=== PATIENT | female | born 1995 | race American Indian/Alaskan Native ===

== ENCOUNTER 2019-05-05 15:23 | Emergency (ER) | payer SELFPAY ==
[2019-05-05 19:50] LABS: Basophils # (Auto) 0.1 K/mm3 (0.0-0.1); Eosinophils # (Auto) 0.1 K/mm3 (0.0-0.4); Eosinophils % (Auto) 1.8 % (0.0-4.3); Hematocrit 35.5 % (30.3-42.9); Hemoglobin 12.2 gm/dl (10.1-14.3); Lymphocytes # (Auto) 2.4 K/mm3 (1.2-5.4); Lymphocytes % (Auto) 42.3 % (13.4-35.0); Mean Corpuscular HGB Conc 34 % (30-34); Mean Corpuscular Volume 93 fl (79-97); Monocytes # (Auto) 0.4 K/mm3 (0.0-0.8); Monocytes % (Auto) 6.6 % (0.0-7.3); Red Blood Count 3.82 M/mm3 (3.65-5.03)
--- NOTE | 2019-05-05 20:01 | Emergency Department Report ---
<HAZEL GROSS - Last Filed: 05/05/19 22:40> ED Psych HPI - General Chief Complaint: Psych Stated Complaint: MH Time Seen by Provider: 05/05/19 16:15 - Related Data Home Medications Medication Instructions Recorded Confirmed Last Taken Unobtainable 05/06/19 05/06/19 Unknown Allergies Allergy/AdvReac Type Severity Reaction Status Date / Time Unable to Assess Allergy Unverified 05/05/19 16:03 ED Past Medical Hx - Medications Home Medications: Home Medications Medication Instructions Recorded Confirmed Last Taken Type Unobtainable 05/06/19 05/06/19 Unknown History ED Course - Reevaluation(s) Reevaluation #1: 05/05/19 22:42 CT scan of the brain negative for acute disease. Screening laboratory studies unremarkable. Patient appears medically suitable for psychiatric placement at this time. ED Medical Decision Making - Lab Data Result diagrams: 05/05/19 19:33 05/05/19 19:33 Vital Signs 05/05/19 05/05/19 16:43 20:00 Temperature 98.5 F 98.0 F Pulse Rate 71 95 H Respiratory 20 18 Rate Blood Pressure 136/91 129/81 [Left] O2 Sat by Pulse 99 99 Oximetry Lab Results 05/05/19 05/05/19 05/05/19 Range/Units 19:33 19:33 19:33 WBC 5.7 (4.5-11.0) K/mm3 RBC 3.82 (3.65-5.03) M/mm3 Hgb 12.2 (10.1-14.3) gm/dl Hct 35.5 (30.3-42.9) % MCV 93 (79-97) fl MCH 32 (28-32) pg MCHC 34 (30-34) % RDW 14.0 (13.2-15.2) % Plt Count 147 (140-440) K/mm3 Lymph % (Auto) 42.3 H (13.4-35.0) % Weston % (Auto) 6.6 (0.0-7.3) % Eos % (Auto) 1.8 (0.0-4.3) % Baso % (Auto) 1.0 (0.0-1.8) % Lymph # 2.4 (1.2-5.4) K/mm3 Weston # 0.4 (0.0-0.8) K/mm3 Eos # 0.1 (0.0-0.4) K/mm3 Baso # 0.1 (0.0-0.1) K/mm3 Seg Neutrophils % 48.3 (40.0-70.0) % Seg Neutrophils # 2.8 (1.8-7.7) K/mm3 Sodium 138 (137-145) mmol/L Potassium 5.3 H (3.6-5.0) mmol/L Chloride 104.6 (98-107) mmol/L Carbon Dioxide 23 (22-30) mmol/L Anion Gap 16 mmol/L BUN 7 (7-17) mg/dL Creatinine 0.8 (0.7-1.2) mg/dL Estimated GFR > 60 ml/min BUN/Creatinine Ratio 9 % Glucose 82 (65-100) mg/dL Calcium 9.5 (8.4-10.2) mg/dL Total Bilirubin 0.50 (0.1-1.2) mg/dL AST 31 (5-40) units/L ALT 16 (7-56) units/L Alkaline Phosphatase 45 (35-129) units/L Total Protein 7.4 (6.3-8.2) g/dL Albumin 4.2 (3.9-5) g/dL Albumin/Globulin Ratio 1.3 % HCG, Qual (Negative) Salicylates < 0.3 L (2.8-20.0) mg/dL Acetaminophen (10.0-30.0) ug/mL Plasma/Serum Alcohol (0-0.07) % 05/05/19 05/05/19 05/05/19 Range/Units 19:33 19:33 19:33 WBC (4.5-11.0) K/mm3 RBC (3.65-5.03) M/mm3 Hgb (10.1-14.3) gm/dl Hct (30.3-42.9) % MCV (79-97) fl MCH (28-32) pg MCHC (30-34) % RDW (13.2-15.2) % Plt Count (140-440) K/mm3 Lymph % (Auto) (13.4-35.0) % Weston % (Auto) (0.0-7.3) % Eos % (Auto) (0.0-4.3) % Baso % (Auto) (0.0-1.8) % Lymph # (1.2-5.4) K/mm3 Weston # (0.0-0.8) K/mm3 Eos # (0.0-0.4) K/mm3 Baso # (0.0-0.1) K/mm3 Seg Neutrophils % (40.0-70.0) % Seg Neutrophils # (1.8-7.7) K/mm3 Sodium (137-145) mmol/L Potassium (3.6-5.0) mmol/L Chloride (98-107) mmol/L Carbon Dioxide (22-30) mmol/L Anion Gap mmol/L BUN (7-17) mg/dL Creatinine (0.7-1.2) mg/dL Estimated GFR ml/min BUN/Creatinine Ratio % Glucose (65-100) mg/dL Calcium (8.4-10.2) mg/dL Total Bilirubin (0.1-1.2) mg/dL AST (5-40) units/L ALT (7-56) units/L Alkaline Phosphatase (35-129) units/L Total Protein (6.3-8.2) g/dL Albumin (3.9-5) g/dL Albumin/Globulin Ratio % HCG, Qual Negative (Negative) Salicylates (2.8-20.0) mg/dL Acetaminophen < 5.0 L (10.0-30.0) ug/mL Plasma/Serum Alcohol < 0.01 (0-0.07) % - Radiology Data Radiology results: report reviewed, image reviewed ED Disposition Clinical Impression: Psychosis, Marijuana use Disposition: DC/TX-65 PSY HOSP/PSY UNIT Is pt being admited?: No Does the pt Need Aspirin: No Condition: Stable Referrals: VIRI NEVAREZ MD [Primary Care Provider] - 3-5 Days <RALF SHI - Last Filed: 05/07/19 01:31> ED Psych HPI - General Source: EMS Mode of arrival: Ambulatory - History of Present Illness Initial Comments: 23 yo female pt found wandering around parking lot of local business stating "20 people just ", and rambling random words when asked her name, laughing at inappropriate times, unable to answer questions appropriately at this time. Patient is able to state her name is "Genoveva." When I asked pt if she has a hx of any psychiatric diseases, pt begins to mumble about something else unrelated. -: unknown Associated Psychiatric Symptoms: other (psychosis) Treatments Prior to Arrival: none ED Review of Systems ROS: Stated complaint: MH Other details as noted in HPI Comment: Unobtainable due to pts medical conditions (pt is altered) ED Past Medical Hx - Social History Smoking Status: Former Smoker Substance Use Type: Other ED Physical Exam - General Limitations: No Limitations General appearance: alert, in no apparent distress - Head Head exam: Present: atraumatic, normocephalic - Eye Eye exam: Present: normal appearance - ENT ENT exam: Present: mucous membranes moist - Neck Neck exam: Present: normal inspection - Respiratory Respiratory exam: Absent: respiratory distress - Cardiovascular Cardiovascular Exam: Present: regular rate, normal rhythm - GI/Abdominal GI/Abdominal exam: Absent: distended - Extremities Exam Extremities exam: Present: normal inspection, full ROM - Neurological Exam Neurological exam: Present: alert - Psychiatric Psychiatric exam: Present: other (appears to be acutely psychotic, responding to internal stimuli, disorganized thoughts) - Skin Skin exam: Present: warm, dry, intact, normal color ED Course Vital Signs 05/05/19 05/05/19 05/06/19 16:43 20:00 04:11 Temperature 98.5 F 98.0 F 97.1 F L Pulse Rate 71 95 H 63 Respiratory 20 18 18 Rate Blood Pressure 136/91 129/81 116/62 [Left] O2 Sat by Pulse 99 99 100 Oximetry 05/06/19 05/06/19 05/06/19 09:51 15:44 19:52 Temperature 97.6 F 98.3 F 98.1 F Pulse Rate 86 88 89 Respiratory 16 16 18 Rate Blood Pressure 125/77 132/78 131/83 [Left] O2 Sat by Pulse 100 99 98 Oximetry ED Medical Decision Making - Lab Data Result diagrams: 05/05/19 19:33 05/05/19 19:33 - Medical Decision Making Pt placed on 1013. Labs and CT unremarkable. Pt is clear for mental health evaluation. Will dispo per psych. - Differential Diagnosis psychosis, drug abuse Critical care attestation.: If time is entered above; I have spent that time in minutes in the direct care of this critically ill patient, excluding procedure time. ED Disposition Is pt being admited?: No
[2019-05-05 20:10] LABS: Platelet Count 147 K/mm3 (140-440)
[2019-05-05 20:17] LABS: Albumin 4.2 g/dL (3.9-5); BUN/Creatinine Ratio 9; Blood Urea Nitrogen 7 mg/dL (7-17); Calcium 9.5 mg/dL (8.4-10.2); Hemolysis Index 217
[2019-05-05 20:35] LABS: Alanine Aminotransferase 16 units/L (7-56)
--- NOTE | 2019-05-05 22:17 | Cat Scan Report ---
PROCEDURE: CT HEAD/BRAIN WO CON TECHNIQUE: Computerized tomography of the head was performed without contrast material. CT DOSE LENGTH PRODUCT: 928.1 mGycm HISTORY: ams COMPARISONS: None . FINDINGS: There is no evidence of an acute intracranial process, intracranial hemorrhage or mass effect. The ventricles are normal size. The visualized portions of the orbits, paranasal and mastoid sinuses are unremarkable. The bony structures are unremarkable. IMPRESSION: 1. No evidence of an acute intracranial process, intracranial hemorrhage or mass effect. If there is a clinical suspicion of an acute intracranial process, MRI brain may be helpful. This document is electronically signed by Umm Blanchard MD., May 05 2019 10:15:19 PM ET
[2019-05-05] MEDS ORDERED: HALDOL IM PRN (22:42)
[2019-05-05] MEDS ORDERED: KIONEX PO ONE (22:42)
[2019-05-05] MEDS ORDERED: TYLENOL PO PRN (22:42)
[2019-05-06] MEDS: ATIVAN IM PRN ×2 (01:05→19:40)
[2019-05-06 10:09] LABS: Bilirubin,Urine NEG (Negative); Blood,Urine NEG (Negative); Color,Urine Yellow (Yellow); Mucus,Urine 3+ /HPF; Protein,Urine <15 mg/dL mg/dL (Negative); Urobilinogen,Urine < 2.0 mg/dL (<2.0)
[2019-05-06 10:17] LABS: Amphetamine Screen,Urine PRESUMPTIVE NEGATIVE; Benzodiazepines Screen,Urine PRESUMPTIVE NEGATIVE; Cocaine Screen,Urine PRESUMPTIVE NEGATIVE; Methadone Screen,Urine PRESUMPTIVE NEGATIVE; Opiate Screen,Urine PRESUMPTIVE NEGATIVE
[2019-05-06 10:30] LABS: Cannabinoid Screen,Urine PRESUMPTIVE POSITIVE
--- NOTE | 2019-05-06 12:40 | Consultation ---
History of Present Illness - Reason for Consult Consult date: 05/06/19 Reason for consult: Mental Health Evaluation Requesting physician: RALF SHI - Chief Complaint Chief complaint: "I am here" - History of Present Psychiatric Illness 23 y.o. AA female who presented to the ER for bizarre behavior. Today the patient was calm, but tangent during the assessment. Her answers to most questions were not logical. She had to be redirected several times to keep her on topic. She did state that she haven't slept in days. She stated that she smoke marijuana often. Overall, the patient is not a good historian at this time. No gestures of SI/HI's. Medications and Allergies Allergies Allergy/AdvReac Type Severity Reaction Status Date / Time Unable to Assess Allergy Unverified 05/05/19 16:03 Home Medications Medication Instructions Recorded Confirmed Last Taken Type Unobtainable 05/06/19 05/06/19 Unknown History Active Meds: Active Medications Acetaminophen (Tylenol) 650 mg PO Q6HR PRN PRN Reason: Pain Benztropine Mesylate (Cogentin) 0.5 mg PO BID DOROTHY Lorazepam (Ativan) 2 mg IM Q4HR PRN PRN Reason: Agitation Last Admin: 05/06/19 01:05 Dose: 2 mg Documented by: Ziprasidone (Geodon) 20 mg PO BID DOROTHY Past psychiatric history - Past Medical History Past Medical History: other (Unable to obtain ) Past Surgical History: Other (Unable to obtain ) - past Psychiatric treatment and history psychiatric treatment history: Unable to obtain a psy hx and fam, psy hx. - Social History Social history: other (Unable to obtain) Mental Status Exam - Vital signs Last Vital Signs Temp 97.6 F 05/06/19 09:51 Pulse 86 05/06/19 09:51 Resp 16 05/06/19 09:51 BP 125/77 05/06/19 09:51 Pulse Ox 100 05/06/19 09:51 - Exam Narrative exam: MSE: Appearance: calm Behavior: regular eye contact Speech: regular rate and tone Mood: "tired" Affect: congruent to mood Thought Process: disorganized, tangential Thought Content: no gestures of SI/HI's and AVH's, delusional Motor Activity: sitting up in bed Cognition: A/O x3 Insight: poor Judgment: poor Results Result Diagrams: 05/05/19 19:33 05/05/19 19:33 Abnormal lab results 05/05/19 05/05/19 05/05/19 Range/Units 19:33 19:33 19:33 Lymph % (Auto) 42.3 H (13.4-35.0) % Potassium 5.3 H (3.6-5.0) mmol/L Salicylates < 0.3 L (2.8-20.0) mg/dL Acetaminophen (10.0-30.0) ug/mL 05/05/19 Range/Units 19:33 Lymph % (Auto) (13.4-35.0) % Potassium (3.6-5.0) mmol/L Salicylates (2.8-20.0) mg/dL Acetaminophen < 5.0 L (10.0-30.0) ug/mL All other labs normal. Assessment and Plan Assessment and plan: Impression: Unspecified Psychosis. Cannabis Use DO. Today the patient was calm, but tangent during the assessment. DDx: Substance Induced Psychosis, R/O Bipolar DO Recommendation/Plan: Continue 1013. Start Geodon 20 mg PO BID for psyhcosis and Cogentin 0.5 mg PO BID for EPS prevention. Attempted to discuss possible metabolic side effects of Seroquel with the patient. Dispo: The patient was referred to inpatient psy services. Staffed with Dr Mera Oconnor.
[2019-05-06] MEDS ORDERED: GEODON PO SCH (13:00)
[2019-05-06] MEDS ORDERED: GEODON IM ONE ×2 (15:28→15:37)
[2019-05-06] MEDS: COGENTIN PO SCH ×2 (15:35→22:06)
--- NOTE | 2019-05-07 10:06 | Progress Note ---
Subjective - Reason for Consult Consult date: 05/07/19 Reason for consult: Psychiatry Follow-up - Chief Complaint Chief complaint: "I need a shot" 23 y.o. AA female who presented to the ER for bizarre behavior. Today the patient was calm, but still tangent during the assessment. She ststed that she need a "shot for something." She could not elaborate more when asked about this "shot." She had to be redirected several times to keep her on topic, but was unsuccessful. She denies SI/HI's and VH's. She would not confirm or deny AH's. No indications of side effects of her medications. Mental Status Exam - Vital signs Last Vital Signs Temp 97.9 F 05/07/19 09:18 Pulse 91 H 05/07/19 09:18 Resp 20 05/07/19 09:18 BP 122/73 05/07/19 09:18 Pulse Ox 98 05/07/19 09:18 - Exam Narrative exam: MSE: Appearance: calm Behavior: regular eye contact Speech: rapid Mood: "okay" Affect: constricted Thought Process: disorganized, tangential, loose associations Thought Content: denies SI/HI's and VH's, delusional Motor Activity: sitting up in bed Cognition: A/O x3 Insight: poor Judgment: poor Assessment and Plan Impression: Unspecified Psychosis. Cannabis Use DO. Today the patient was calm, but still tangent during the assessment. DDx: Substance Induced Psychosis, R/O Bipolar DO Recommendation/Plan: Continue 1013, Geodon 20 mg PO BID for psyhcosis, and Cogentin 0.5 mg PO BID for EPS prevention. Attempted to discuss possible metabolic side effects of Geodon with the patient. Give Geodn with food. Dispo: The patient was referred to inpatient psy services. Staffed with Dr Mera Oconnor.
[2019-05-07] MEDS: GEODON PO SCH ×2 (10:45→21:46)
[2019-05-07] MEDS: COGENTIN PO SCH ×2 (10:45→21:46)
[2019-05-07] MEDS ORDERED: GEODON IM ONE ×2 (11:25→11:31)
--- NOTE | 2019-05-07 13:10 | Event Note ---
Date: 05/07/19 face to face has been performed and she is currently calming down
[2019-05-07] MEDS: ATIVAN IM PRN (18:37)
[2019-05-07] MEDS: BENADRYL PO SCH (21:46)
[2019-05-08] MEDS ORDERED: GEODON IM ONE (07:58)
[2019-05-08 08:55] LABS: BUN/Creatinine Ratio 9; Blood Urea Nitrogen 7 mg/dL (7-17); Calcium 9.3 mg/dL (8.4-10.2); Hemolysis Index 2
[2019-05-08] MEDS: COGENTIN PO SCH ×2 (11:30→22:21)
[2019-05-08] MEDS: GEODON PO SCH (11:34)
[2019-05-08] MEDS: ATIVAN IM PRN (12:37)
--- NOTE | 2019-05-08 18:28 | Progress Note ---
Subjective - Reason for Consult Consult date: 05/08/19 Reason for consult: follow up - Chief Complaint Chief complaint: "The juice made me ; They're trying to kill me." 23 y.o. AA female who presented to the ER for bizarre behavior. Today the haily ent was calm, but still tangent during the assessment. She received geodon IM for agitation. Her nurse reports she has been taking her clothes off and leaving the room. She had to be redirected several times to keep her on topic, but was unsuccessful. She denies SI/HI's and VH's. She would not confirm or deny AH's. No indications of side effects of her medications. Mental Status Exam - Vital signs Last Vital Signs Temp 97.6 F 05/08/19 07:56 Pulse 75 05/08/19 07:56 Resp 16 05/08/19 07:56 BP 138/71 05/08/19 07:56 Pulse Ox 98 05/08/19 07:56 - Exam Narrative exam: Appearance: calm Behavior: regular eye contact Speech: rapid Mood: "okay" Affect: constricted Thought Process: disorganized, tangential, loose associations Thought Content: denies SI/HI's and VH's, delusional Motor Activity: ambulatory Cognition: A/O x3 Insight: poor Judgment: poor Assessment and Plan Impression: Unspecified Psychosis. Cannabis Use DO. Today the patient was calm, but still tangential during the assessment. DDx: Substance Induced Psychosis, R/O Bipolar DO Recommendation/Plan: Continue 1013, Staff has not been giving scheduled geodon since she is receiving it prn. geodon changed to risperdal 1mg bid and continue Cogentin 0.5 mg PO BID for EPS prevention. Dispo: The patient was referred to inpatient psy services. Staffed with Dr Mera Oconnor.
[2019-05-08] MEDS: BENADRYL PO SCH (22:20)
[2019-05-08] MEDS: RisperDAL PO SCH (22:23)
[2019-05-09] MEDS: ATIVAN IM PRN ×2 (02:00→21:22)
[2019-05-09] MEDS ORDERED: WATER FOR INJ Sterile (PF) 10 ML ONE (07:50)
[2019-05-09] MEDS: GEODON IM PRN ×2 (08:20→21:21)
[2019-05-09] MEDS: COGENTIN PO SCH ×3 (11:30→22:20)
[2019-05-09] MEDS: RisperDAL PO SCH ×3 (11:30→22:20)
--- NOTE | 2019-05-09 19:10 | Progress Note ---
Subjective - Reason for Consult Consult date: 05/09/19 Reason for consult: follow up - Chief Complaint Chief complaint: "I have to go to school tomorrow." 23 y.o. AA female who presented to the ER for bizarre behavior. Today the patient was calm, but still tangential during the assessment. Attempts were made several times to keep her on topic, but was unsuccessful. She denies SI/HI's and VH's. She would not confirm or deny AH's. No indications of side effects of her medications. Mental Status Exam - Vital signs Last Vital Signs Temp 98.4 F 05/09/19 07:56 Pulse 96 H 05/09/19 07:56 Resp 16 05/09/19 07:56 BP 114/67 05/09/19 07:56 Pulse Ox 99 05/09/19 07:56 - Exam Narrative exam: Appearance: calm Behavior: regular eye contact Speech: rapid Mood: "okay" Affect: constricted Thought Process: disorganized, tangential, loose associations Thought Content: denies SI/HI's and VH's, delusional Motor Activity: ambulatory Cognition: A/O x3 Insight: poor Judgment: poor Assessment and Plan Impression: Unspecified Psychosis. Cannabis Use DO. Today the patient was calm, but still tangential during the assessment. DDx: Substance Induced Psychosis, R/O Bipolar DO Recommendation/Plan: Continue 1013, Staff has not been giving scheduled geodon since she is receiving it prn. geodon continue risperdal 1mg bid and continue Cogentin 0.5 mg PO BID for EPS prevention. Dispo: The patient was referred to inpatient psy services. Staffed with Dr Mera Oconnor.
[2019-05-09] MEDS: BENADRYL PO SCH ×2 (21:28→22:20)
[2019-05-10] MEDS: COGENTIN PO SCH ×2 (08:45→22:05)
[2019-05-10] MEDS: RisperDAL PO SCH ×2 (08:45→22:05)
[2019-05-10] MEDS: GEODON IM PRN (08:57)
--- NOTE | 2019-05-10 10:26 | Progress Note ---
Subjective - Reason for Consult Consult date: 05/10/19 Reason for consult: Psychiatry Follow-up - Chief Complaint Chief complaint: "My time maybe up" 23 y.o. AA female who presented to the ER for bizarre behavior. Today the patient was paranoid during the assessment. She was observed pacing in her assigned room. She had to be redirected several times to keep her on topic. Most of her answers are not logical. She denies SI/HI's and AVH's. No indications of side effects of her medication. Mental Status Exam - Vital signs Last Vital Signs Temp 97.6 F 05/10/19 09:10 Pulse 16 L 05/10/19 09:10 Resp 16 05/10/19 09:10 BP 132/78 05/10/19 09:10 Pulse Ox 100 05/10/19 09:10 - Exam Narrative exam: MSE: Appearance: in hospital attire Behavior: regular eye contact Speech: rapid Mood: "okay" Affect: congruent to mood Thought Process: disorganized, tangential, loose associations Thought Content: denies SI/HI's and AVH's, paranoid, delusional Motor Activity: sitting up in bed Cognition: A/O x3 Insight: poor Judgment: poor Assessment and Plan Impression: Unspecified Psychosis. Cannabis Use DO. Today the patient was paranoid during the assessment. DDx: Substance Induced Psychosis, R/O Bipolar DO Recommendation/Plan: Continue 1013, Risperdal 1 mg PO BID for psychosis, and Cogentin 0.5 mg PO BID for EPS prevention. Attempted to discuss possible metabolic side effects of Risperdal. Dispo: The patient was referred to inpatient psy services. Will staff with Dr Mera Oconnor.
[2019-05-10] MEDS: ATIVAN IM PRN (11:30)
[2019-05-10] MEDS: BENADRYL PO SCH (22:05)
--- NOTE | 2019-05-11 10:03 | Progress Note ---
Subjective - Reason for Consult Consult date: 05/11/19 Reason for consult: Psychiatry Follow-up - Chief Complaint Chief complaint: "I need to leave" 23 y.o. AA female who presented to the ER for bizarre behavior. Today the patient was calm, but tangent during the assessment. She continue to be delusional throughout the interview. She is tangent and had to to redirected several times to keep her on topic. She denies SI/HI's and AVH's. No indications of side effects of her medications. Mental Status Exam - Vital signs Last Vital Signs Temp 98 F 05/11/19 03:33 Pulse 75 05/11/19 03:33 Resp 18 05/11/19 03:33 BP 111/74 05/11/19 03:33 Pulse Ox 100 05/11/19 03:33 - Exam Narrative exam: MSE: Appearance: in hospital attire Behavior: regular eye contact Speech: rapid Mood: "okay" Affect: congruent to mood Thought Process: tangential, loose associations Thought Content: denies SI/HI's and AVH's, delusional Motor Activity: sitting up in bed Cognition: A/O x3 Insight: poor Judgment: poor Assessment and Plan Impression: Unspecified Psychosis. Cannabis Use DO. Today the patient was calm, but tangent during the assessment. DDx: Substance Induced Psychosis, R/O Bipolar DO Recommendation/Plan: Continue 1013. Also, the patient's 1013 expires tomorrow. She will be reassess in 24 hours to determined if her 1013 will be extended. Continue Risperdal 1 mg PO BID for psychosis and Cogentin 0.5 mg PO BID for EPS prevention. Attempted to discuss possible metabolic side effects of Risperdal. Dispo: The patient was accepted at [facility] pending transport time. Will staff with Dr Mera Oconnor.
[2019-05-11] MEDS: COGENTIN PO SCH ×2 (11:40→22:05)
[2019-05-11] MEDS: RisperDAL PO SCH ×2 (11:40→22:06)
[2019-05-11] MEDS: BENADRYL PO SCH (22:05)
[2019-05-12 08:07] VITALS: BP 102/71
[2019-05-12] MEDS: COGENTIN PO SCH (10:14)
[2019-05-12] MEDS: RisperDAL PO SCH (10:14)
== END 2019-05-12 10:15 ==
LOC: EEVIPCON 15:23 → ED 15:23
DX: F29 Unspecified psychosis not due to a substance or known physiological condition (principal); F12.90 Cannabis use, unspecified, uncomplicated; Z87.891 Personal history of nicotine dependence
CPT/HCPCS: 36415; 70450; 80048; 80053; 80307; 81001; 84703; 85025; 96372; 99285; G0480; J1630; J2060; J3486; 80320